=== PATIENT | male | born 1965 | race Caucasian/White ===

== ENCOUNTER 2017-12-26 06:56 | Day surgery (SDC) | payer BC ==
[~2017-12-26 06:56] MED LIST: Lactated Ringers 1,000 ML IV SCH; Propofol 200 MG/20 ML SDV IV ONE; Sodium Chloride 0.9% 10 ML Syringe FLUSH PRN
--- NOTE | 2017-12-26 09:13 | PCM.OPNOTE ---
- General Post-Op/Procedure Note Date of Surgery/Procedure: 12/26/17 Operative Procedure(s): c scope with bx Findings: ascending colon polyps x3 descending colon polyp diverticulosis Pre Op Diagnosis: screening Post-Op Diagnosis: ascending colon polyps x3. descending colon polyp. diverticulosis Anesthesia Technique: MAC Primary Surgeon: Julien Quijano Anesthesia Provider: Gabriel Wallace Pathology: ascending colon polyps x3 descending colon polyp Complications: None Condition: Good Free Text/Narrative:: see dictation [id number]
--- NOTE | 2017-12-26 10:03 | OR ---
DATE OF OPERATION: 12/26/2017 SURGEON: Julien Quijano MD PROCEDURES PERFORMED: Colonoscopy with cold forceps biopsy. PREOPERATIVE DIAGNOSIS: Need for screening C-scope. POSTOPERATIVE DIAGNOSES: Ascending colon polyps x3 and descending colon polyp, as well as diverticulosis. INDICATIONS FOR PROCEDURE: This is a 52-year-old white male who presents for his initial screening colonoscopy. He was offered and accepted same. DESCRIPTION OF OPERATION: After an excellent IV sedation was administered, digital rectal exam was performed. No marked abnormality was noted. The flexible colonoscope was inserted and advanced without difficulty to the patient's cecum. The prep was excellent. The following findings were noted. Ascending colon, 3 small polyps, biopsied with cold biopsy forceps and sent for permanent. Scattered diverticula were noted. Transverse colon, occasional diverticula. Descending colon, small polypoid lesion with occasional diverticula. The polyp was biopsied with cold biopsy forceps and sent for permanent. Sigmoid was unremarkable. Rectum and anus were unremarkable. Colon was deflated. Scope was removed. The patient tolerated the procedure well and was taken to the recovery room in a good condition. Results by letter. /[id number] /MODL
[2017-12-26 10:25] VITALS: BP 121/69
== END 2017-12-26 10:25 | disposition home or self-care (01) ==
LOC: FB.SDS 06:56
PROVIDERS: ATTEND Surgery
DX: Z12.11 Encounter for screening for malignant neoplasm of colon (principal); D12.2 Benign neoplasm of ascending colon; K63.5 Polyp of colon; K57.30 Diverticulosis of large intestine without perforation or abscess without bleeding; Z79.82 Long term (current) use of aspirin; Z79.899 Other long term (current) drug therapy; Z91.018 Allergy to other foods; Z98.890 Other specified postprocedural states
CPT/HCPCS: 45380; 88305; J2704; J7120

== ENCOUNTER 2023-05-28 06:16 | Day surgery (SDC) | payer BC ==
[~2023-05-28 06:16] MED LIST changes: -Propofol 200 MG/20 ML SDV IV ONE
[2023-05-28] MEDS ORDERED: Labetalol 100 MG/20 ML MDV IV ONE (06:17)
[2023-05-28] MEDS ORDERED: Propofol 200 MG/20 ML SDV IV ONE (06:17)
[2023-05-28 07:19] VITALS: BP 156/103; PULSE 84
[2023-05-28] MEDS ORDERED: Simethicone Drops 40 MG/0.6 ML 30 ML Bottle PO ONE (07:52)
== END 2023-05-28 09:25 | disposition home or self-care (01) ==
LOC: FB.SDS 06:16
PROVIDERS: ATTEND Surgery
DX: D12.2 Benign neoplasm of ascending colon (principal); D12.6 Benign neoplasm of colon, unspecified; K57.30 Diverticulosis of large intestine without perforation or abscess without bleeding; G47.33 Obstructive sleep apnea (adult) (pediatric); Z68.33 Body mass index [BMI] 33.0-33.9, adult; Z79.82 Long term (current) use of aspirin; Z79.899 Other long term (current) drug therapy; Z91.018 Allergy to other foods; Z98.890 Other specified postprocedural states
CPT/HCPCS: 88305; A9270-GY; J2704; J3490; J7120